=== PATIENT | male | born 2000 | race American Indian/Alaskan Native ===

== ENCOUNTER 2022-05-12 03:07 | Emergency (ER) | payer OTHER ==
[2022-05-12 03:35] VITALS: BP 130/80
[2022-05-12] MEDS ORDERED: LIDOCAINE (1%) 10 MG/1 ML VIAL 20 ML MDV INFILTRATI ONE (05:03)
[2022-05-12] MEDS ORDERED: KETOROLAC 60 MG/2 ML INJ IM ONE (05:24)
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
[2022-05-12] MEDS ORDERED: BACITRACIN/POLYMYXIN B OINT 28.35 GM TP ONE (05:38)
[2022-05-12] MEDS ORDERED: LIDOCAINE-MPF (1%) 10 MG/1 ML VIAL 5 ML INFILTRATI ONE (06:00)
== END 2022-05-12 06:14 | disposition home or self-care (01) ==
LOC: ED 03:07
DX: S61.411A Laceration without foreign body of right hand, initial encounter (principal); J45.909 Unspecified asthma, uncomplicated; F17.200 Nicotine dependence, unspecified, uncomplicated; W26.0XXA Contact with knife, initial encounter; Y93.89 Activity, other specified; Y92.89 Other specified places as the place of occurrence of the external cause; Y99.8 Other external cause status
CPT/HCPCS: 12002; 96372; 99283; J1885; J3490